=== PATIENT | male | born 1950 | race Caucasian/White ===

== ENCOUNTER 2023-07-19 14:33 | Emergency (ER) | payer MEDICARE ==
[~2023-07-19] VITALS: Ht 160 cm; Wt 77.1 kg
[~2023-07-19 14:33] MED LIST: ASPI-1406 PO; ATOR20TA65 MT; COR3 PO; EMPA25TA PO; EZET10TA81 PO; FINA1TAB18 PO; GLIP5TAB22 PO; ISOS30TA91 PO; LIDO1ADH71 TOP; METF-414 PO; TAMS-11 PO
[2023-07-19 15:12] VITALS: O2SAT 98
[2023-07-19] MEDS ORDERED: NIRM1TAB8 PO (16:24)
[2023-07-19 16:45] VITALS: BP 110/80; PULSE 70; RESP 15; TEMP 98.3
== END 2023-07-19 16:46 | disposition home or self-care (01) ==
LOC: ER 14:33
DX: U07.1 COVID-19 (principal); E11.9 Type 2 diabetes mellitus without complications; I10 Essential (primary) hypertension; Z98.890 Other specified postprocedural states
CPT/HCPCS: 99283